=== PATIENT | female | born 1955 | race Caucasian/White ===

== ENCOUNTER → 2023-08-16 | Emergency (ER) | payer OTHER ==
[2023-08-16 15:15] LABS: SARS-CoV-2 Antigen Rapid Res Negative (Negative)
--- NOTE | 2023-08-16 15:32 | RAD REPORT ---
EXAM DESCRIPTION: Shahram Single View08/16/2023 3:10 pm CLINICAL HISTORY: cough COMPARISON: none FINDINGS: The lungs appear clear of acute infiltrate. The heart is normal size IMPRESSION: No acute abnormalities displayed
--- NOTE | 2023-08-16 15:59 | ER ---
Nurse's Notes [facility] Name: Caren Weller Age: 68 yrs Sex: Female : 1955 Arrival Date: 08/16/2023 Time: 14:15 Bed DX4 Private MD: Diagnosis: Acute pharyngitis, unspecified;Acute upper respiratory infection, unspecified Presentation: 08/16 14:39 Chief complaint: Patient states: SORE THROAT AND COUGH x3 DAYS. Coronavirus screen: At bp this time, the client does not indicate any symptoms associated with coronavirus-19. Ebola Screen: No symptoms or risks identified at this time. Initial Sepsis Screen: Does the patient meet any 2 criteria? No. Patient's initial sepsis screen is negative. Does the patient have a suspected source of infection? No. Patient's initial sepsis screen is negative. Risk Assessment: Do you want to hurt yourself or someone else? Patient reports no desire to harm self or others. Onset of symptoms is unknown. 14:39 Method Of Arrival: Ambulatory bp 14:39 Acuity: AGUSTINA 4 bp Triage Assessment: 14:34 General: Appears uncomfortable, Behavior is calm, cooperative, appropriate for age. bp Pain: Complains of pain in neck. EENT: Throat is reddened. Historical: - Allergies: 14:34 Sulfa (Sulfonamide Antibiotics); bp 14:34 Codeine; bp 14:34 Tobramycin; bp 14:34 TELECTIN; bp - Home Meds: 14:34 QUVITRU [Active]; ESTROGEN [Active]; verapamil 240 mg oral tablet, extended release 1 bp tab daily [Active]; losartan 50 mg oral tablet 1 tab daily [Active]; Neurontin Oral [Active]; Hydrocodone-Acetaminophen Oral [Active]; TRILIGY [Active]; - PMHx: 14:34 IG DEFICIENCY; Asthma; Hypertensive disorder; bp - PSHx: 14:34 BACK FUSION; bp - Immunization history:: Adult Immunizations up to date. - Social history:: Smoking status: Patient denies any tobacco usage or history of. Vital Signs: 14:39 BP 155 / 77; Pulse 88; Resp 16; Temp 97.8; Pulse Ox 100% ; Weight 54.43 kg; Height 5 bp ft. 6 in. ; 14:39 Body Mass Index 19.37 (54.43 kg, 167.64 cm) bp ED Course: 14:19 Patient arrived in ED. ae5 14:34 Saige Mcfarland FNP is [facility]. jh7 14:34 Josh Tariq MD is Attending Physician. jh7 14:34 Arm band placed on. bp 14:40 Triage completed. bp 15:11 XRAY Chest (1 view) In Process Unspecified. EDMS Administered Medications: No medications were administered Outcome: 15:58 Discharge ordered by . Farhat 16:23 Patient left the ED. Signatures: Dispatcher [employer] EDMS Marianna Rodriguez RN RN Jakob Palmer RN RN Saige Shane FNP FNP [facility] Stacy Issa ae5
--- NOTE | 2023-08-16 15:59 | EDPHYS ---
Physician Documentation [facility] Name: Caren Weller Age: 68 yrs Sex: Female : 1955 Arrival Date: 08/16/2023 Time: 14:15 Bed DX4 Private MD: ED Physician Josh Tariq HPI: 08/16 14:39 This 68 yrs old Female presents to ER via Ambulatory with complaints of Sore Throat. jh7 14:39 The patient presents with sore throat. The patient describes throat pain as burning. jh7 Onset: The symptoms/episode began/occurred 3 day(s) ago. Associated signs and symptoms: Pertinent positives: cough, rhinorrhea, Sore throat body aches, Pertinent negatives fever. Patient reports that she has a history of an IgG deficiency and is normally does not run fever. Currently on Augmentin due to a procedure that scheduled next week.. Historical: - Allergies: 14:34 Sulfa (Sulfonamide Antibiotics); bp 14:34 Codeine; bp 14:34 Tobramycin; bp 14:34 TELECTIN; bp - Home Meds: 14:34 QUVITRU [Active]; ESTROGEN [Active]; verapamil 240 mg oral tablet, extended release 1 bp tab daily [Active]; losartan 50 mg oral tablet 1 tab daily [Active]; Neurontin Oral [Active]; Hydrocodone-Acetaminophen Oral [Active]; TRILIGY [Active]; - PMHx: 14:34 IG DEFICIENCY; Asthma; Hypertensive disorder; bp - PSHx: 14:34 BACK FUSION; bp - Immunization history:: Adult Immunizations up to date. - Social history:: Smoking status: Patient denies any tobacco usage or history of. ROS: 14:39 Eyes: Negative for injury, pain, redness, and discharge, Neck: Negative for injury, jh7 pain, and swelling, Cardiovascular: Negative for chest pain, palpitations, and edema, Abdomen/GI: Negative for abdominal pain, nausea, vomiting, diarrhea, and constipation, Back: Negative for injury and pain, MS/Extremity: Negative for injury and deformity, Skin: Negative for injury, rash, and discoloration, Neuro: Negative for headache, weakness, numbness, tingling, and seizure, 14:39 Constitutional: Positive for body aches, malaise, 14:39 ENT: Positive for rhinorrhea, sore throat, 14:39 Respiratory: Positive for cough, Negative for shortness of breath, wheezing, 14:39 All other systems are negative, Exam: 14:39 Constitutional: This is a well developed, well nourished patient who is awake, alert, jh7 and in no acute distress. Head/Face: Normocephalic, atraumatic. Eyes: Pupils equal round and reactive to light, extra-ocular motions intact. Lids and lashes normal. Conjunctiva and sclera are non-icteric and not injected. Cornea within normal limits. Periorbital areas with no swelling, redness, or edema. Neck: Trachea midline, no thyromegaly or masses palpated, and no cervical lymphadenopathy. Supple, full range of motion without nuchal rigidity, or vertebral point tenderness. No Meningismus. Cardiovascular: Regular rate and rhythm with a normal S1 and S2. No gallops, murmurs, or rubs. Normal PMI, no JVD. No pulse deficits. Respiratory: Lungs have equal breath sounds bilaterally, clear to auscultation and percussion. No rales, rhonchi or wheezes noted. No increased work of breathing, no retractions or nasal flaring. Abdomen/GI: Soft, non-tender, with normal bowel sounds. No distension or tympany. No guarding or rebound. No evidence of tenderness throughout. Back: No spinal tenderness. No costovertebral tenderness. Full range of motion. Skin: Warm, dry with normal turgor. Normal color with no rashes, no lesions, and no evidence of cellulitis. MS/ Extremity: Pulses equal, no cyanosis. Neurovascular intact. Full, normal range of motion. Neuro: Awake and alert, GCS 15, oriented to person, place, time, and situation. Motor strength 5/5 in all extremities. Sensory grossly intact. Normal gait. 14:39 ENT: Ear canal(s): are normal, TM's: are normal, Nose: nasal drainage, and is seen coming from both nares, that is clear, Posterior pharynx: Uvula: normal, swelling, is not appreciated, erythema, that is moderate, exudate, is not appreciated, Vital Signs: 14:39 BP 155 / 77; Pulse 88; Resp 16; Temp 97.8; Pulse Ox 100% ; Weight 54.43 kg; Height 5 bp ft. 6 in. ; 14:39 Body Mass Index 19.37 (54.43 kg, 167.64 cm) bp MDM: 14:34 Patient medically screened. [facility] 15:40 Differential diagnosis: Allergic rhinitis, group A strep tonsillitis, pharyngitis, jh7 tonsillitis, upper respiratory infection, viral syndrome. Data reviewed: vital signs, nurses notes, lab test result(s). Historians other than the Patient: Spouse/Significant Other: . Care significantly affected by the following chronic conditions: Hypertension. Counseling: I had a detailed discussion with the patient and/or guardian regarding the historical points, exam findings, and any diagnostic results supporting the discharge/admit diagnosis, to return to the emergency department if symptoms worsen or persist or if there are any questions or concerns that arise at home. 08/16 14:41 Order name: Strep 7 08/16 14:41 Order name: Flu; Complete Time: 15:36 [facility] 08/16 14:41 Order name: SARS RAPID; Complete Time: 15:36 [facility] 08/16 15:16 Order name: Throat Culture [facility] 08/16 14:41 Order name: XRAY Chest (1 view); Complete Time: 15:36 [facility] Administered Medications: No medications were administered Disposition: 18:37 Co-signature as Attending Physician, Josh Tariq MD I reviewed the patient's care rn provided by the Advanced Practice Provider and agree with the diagnosis and treatment plan. Disposition Summary: 08/16/23 15:58 Discharge Ordered Notes: Location: Home [facility] Problem: new [facility] Symptoms: are unchanged [facility] Condition: Stable [facility] Diagnosis - Acute pharyngitis, unspecified 7 - Acute upper respiratory infection, unspecified 7 Followup: [facility] - With: Private Physician - When: 2 - 3 days - Reason: Recheck today's complaints Discharge Instructions: - Discharge Summary Sheet 7 - Pharyngitis jh7 - Upper Respiratory Infection, Adult [facility] Forms: - Medication Reconciliation Form [facility] - Thank You Letter [facility] - Antibiotic Education [facility] - Patient Portal Instructions [facility] - Leadership Thank You Letter [facility] Prescriptions: - Tessalon Perles 100 mg Oral Capsule - take 1 capsule ORAL route every 8 hours As needed; 15 capsule; Refills: 0, jh7 Product Selection Permitted Signatures: Dispatcher [employer] Josh Fontenot MD MD rn Jakob Palmer RN RN bp Saige Mcfarland, [employer]ORATORY [employer]IMAL [employer]ATORY [employer] jh7
[2023-08-16 16:50] VITALS: BP 155/77; TEMP 97.8; O2SAT 100
== END ==
LOC: ER 14:15
DX: J06.9 Acute upper respiratory infection, unspecified (principal); Z11.52 Encounter for screening for COVID-19; Z88.1 Allergy status to other antibiotic agents; Z88.2 Allergy status to sulfonamides; Z88.5 Allergy status to narcotic agent
CPT/HCPCS: 36415; 71045; 87070; 87081; 87804; 87811; 99281